=== PATIENT | female | born 1975 | race Caucasian/White ===

== ENCOUNTER 2016-09-29 11:39 | Inpatient (IN) | payer OTHER ==
[2016-09-29 11:53] VITALS: BMI 29.9
--- NOTE | 2016-09-29 11:56 | PDOC ---
History of Present Illness - General Chief Complaint: CVA/TIA Stated Complaint: NUMBNESS/ RT SIDE OF FACE/HEADACHE Time Seen by Provider: 09/29/16 11:55 - History of Present Illness Initial Comments: 41 year old female with history of HTN, HLD, and migraines presenting with right facial heaviness/ numbness and headache since 9:30 AM on 09/29/16 (2.5 hours before interview). She states that she has had a headache and elevated diastolic blood pressures (90s) with systolic in 130s that has been being worked up by Dr. Rooney (her PCP). She was pending insurance approval for CT and just recently achieved approval. She describes the headache as a dull ache radiating from the back of her left neck to her She states that this morning at 9:30 AM she has some numbness and heaviness on the right side of her face along with some sight difficulty speaking. Her last migraine was over a year ago and is not currently on any medication for them. She does admit that this current headache is of the same quality but greater in intensity and with this new facial numbness/ altered sensation. 09/29/16 12:13 Past History - Past Medical History Allergies/Adverse Reactions: Allergies Allergy/AdvReac Type Severity Reaction Status Date / Time No Known Allergies Allergy Verified 09/29/16 11:49 Home Medications: Ambulatory Orders Nifedipine ER [Procardia Xl -] 30 mg PO DAILY #14 tab.er.24 02/23/15 Losartan Potassium 100 mg PO DAILY 09/29/16 Simvastatin 20 mg PO HS 09/29/16 Asthma: No Cancer: No Cardiac Disorders: No Diabetes: No HTN: Yes Seizures: No Thyroid Disease: No - Reproductive History (#): 4 Para: 3 Spontaneous : 0 - Immunization History Immunization Up to Date: Yes - Psycho/Social/Smoking Cessation Hx Anxiety: No Suicidal Ideation: No Smoking Status: No Smoking History: Never smoked Have you smoked in the past 12 months: No Number of Cigarettes Smoked Daily: 0 Hx Alcohol Use: No Drug/Substance Use Hx: No Substance Use Type: None Hx Substance Use Treatment: No Review of Systems - Review of Systems Constitutional: No: Chills, Diaphoresis, Fever, Loss of Appetite HEENTM: No: Blurred Vision, Tearing Respiratory: No: Cough, Shortness of Breath Cardiac (ROS): No: Chest Pain, Irregular Heart Rate ABD/GI: No: Abdominal Distended, Constipated, Diarrhea, Nausea, Vomiting : No: Dysuria, Discharge, Frequency Musculoskeletal: No: Back Pain, Joint Pain, Joint Swelling Integumentary: No: Change in Color, Erythema, Lesions, Rash Neurological: Yes: Headache, Numbness *Physical Exam - Vital Signs Last Vital Signs Temp Pulse Resp BP Pulse Ox 99 F 115 H 19 153/84 99 09/29/16 11:49 09/29/16 11:49 09/29/16 11:49 09/29/16 11:49 09/29/16 11:49 - Physical Exam General Appearance: Yes: Appropriately Dressed. No: Apparent Distress HEENT: positive: EOMI, NUZHAT, Normal Voice Neck: positive: Trachea midline, Normal Thyroid, Supple. negative: Tender, Rigid Respiratory/Chest: positive: Lungs Clear, Normal Breath Sounds. negative: Chest Tender, Respiratory Distress, Accessory Muscle Use Cardiovascular: positive: Regular Rhythm, Regular Rate. negative: S1, S2, Edema , Murmur Gastrointestinal/Abdominal: positive: Normal Bowel Sounds, Flat, Soft. negative : Tender, Organomegaly Musculoskeletal: positive: Normal Inspection Extremity: positive: Normal Range of Motion Integumentary: positive: Normal Color, Dry, Warm Neurologic: positive: spool sander II-XII NML intact, Fully Oriented, Alert, Normal Mood/ Affect, Normal Response, Motor Strength 5/5, Other (Reflexes normal) Heart Score/ECG Review - ECG Impressions Normal ECG: Yes Comment:: 09/29/16 13:10 NSR with anterior lead depend S waves and poor R wave progression. ED Treatment Course - LABORATORY CBC & Chemistry Diagram: 09/29/16 12:17 09/29/16 12:17 Medical Decision Making - Medical Decision Making 41 year old with right sided facial numbness/ heaviness concerning for stroke so code sanderson activated given a score of 1 on the stroke scale and being within the window for thromobolytics without contraindication. CT head and stroke order set sent. This could be a complex migraine as well given her history of migraines in the past so will treat with 975 Tylenol and 10 IV Reglan. 09/29/16 12:43 CT head negative so will touch base with neurology after labs return. 09/29/16 13:02 Patients symptoms resolved after Reglan and Tylenol so this is most likely an element of her migraine history but given risk factors stroke may need to be ruled out further. 09/29/16 14:[address] Washington at 14:30, we will admit patient with MRI Brain and continuation of stroke care. The patient is on board with this plan and she will be admitted to Dr. Armstrong. *DC/Admit/Observation/Transfer Diagnosis at time of Disposition: TIA (transient ischemic attack) - Discharge Dispostion Admit: Yes - Attestations Physician Attestion: 09/29/16 14:57 I, Dr. Zeferino Foster, attest that this document has been prepared under my direction and personally reviewed by me in its entirety. I further attest, that it accurately reflects all work, treatment, procedures and medical decision -making performed by me.
[2016-09-29] MEDS ORDERED: ACETAMINOPHEN 325 MG TABLET (FP) PO ONE (12:12)
[2016-09-29] MEDS ORDERED: METOCLOPRAMIDE HCL INJECTION 10 MG/2 ML VIAL IVPUSH ONE (12:13)
[2016-09-29] MEDS ORDERED: SODIUM CHLORIDE 1,000 ML IV SCH (12:15)
[2016-09-29] MEDS ORDERED: ACETAMINOPHEN 325 MG TABLET (FP) ONE (12:20)
[2016-09-29] MEDS ORDERED: METOCLOPRAMIDE HCL INJECTION 10 MG/2 ML VIAL ONE (12:21)
[2016-09-29 12:56] LABS: EOSINOPHIL 0.1 % (0-4.5); MCH 26.5 pg (25.7-33.7); MCHC 32.6 g/dl (32.0-36.0); MEAN CELL VOLUME 81.3 fl (80-96); NEUTROPHILS 52.8 % (42.8-82.8); PLATELET COUNT 184 K/MM3 (134-434); RDW 14.3 % (11.6-15.6); WHITE BLOOD COUNT 4.3 K/mm3 (4.0-10.0)
--- NOTE | 2016-09-29 13:09 | PDOC ---
Attending Attestation - Resident Resident Name: Zeferino Foster - ED Attending Attestation I have performed the following: I have examined & evaluated the patient, The case was reviewed & discussed with the resident, I agree w/resident's findings & plan, Exceptions are as noted - HPI HPI: 09/29/16 13:05 41-year-old female patient with history of migraines, hypertension, hyperlipidemia presents with several days of right-sided headache radiating to right upper neck. States that she typically gets these headaches around her periods. However, the patient's was concerned as the duration and intensity was worse. She denies any auras or photophobia. Denies fevers or neck stiffness. Patient was initially seen by her primary care physician was scheduled her for an outpatient head CT but recently had her insurance approved. Did not obtain a head CT. Approximate 9:30 AM, the patient started to complain about some paresthesias and numbness along the right side of face so came into the ED. Code glover was activated upon the symptoms. - Physicial Exam PE: 09/29/16 13:07 GENERAL: Awake, alert, and fully oriented, in no acute distress. HEAD: No signs of trauma EYES: PERRLA, EOMI, sclera anicteric, conjunctiva clear ENT: Auricles normal inspection, hearing grossly normal, nares patent, oropharynx clear without exudates. NECK: Normal ROM, supple, no lymphadenopathy, JVD, or masses LUNGS: Breath sounds equal, clear to auscultation bilaterally. No wheezes, and no crackles HEART: Regular rate and rhythm, normal S1 and S2, no murmurs, rubs or gallops ABDOMEN: Soft, nontender, normoactive bowel sounds. No guarding, no rebound. No masses EXTREMITIES: Normal range of motion, no edema. No clubbing or cyanosis. No cords, erythema, or tenderness NEUROLOGICAL: Cranial nerves II through XII intact. Normal speech, normal gait. 5/5 strength upper and lower extremities. No pronator drift. No dysmetria. SKIN: Warm, Dry, normal turgor, no rashes or lesions noted. - Medical Decision Making 09/29/16 13:08 Vital Signs Temp Pulse Resp BP Pulse Ox 99 F 115 H 19 153/84 99 09/29/16 11:49 09/29/16 11:49 09/29/16 11:49 09/29/16 11:49 09/29/16 11:49 Code glover was activated though I have low suspicion for CVA. This was activated based on time and symptoms. Patient currently has an NIH stroke scale of 0 and is in eligible for TPA given relative contra indication for low NIH stroke scale. I suspect the patient likely has a complex migraine given her frequent history of migraines. We'll trial migrainous medications. Head CT was obtained and demonstrates no acute findings. If she reports feeling better and after consultation with neurologist, patient will likely be able to be discharged with follow-up with PMD. 09/29/16 14:08 CBC, BMP 09/29/16 12:17 09/29/16 12:17 CMP Sodium 139 mmol/L (136-145) 09/29/16 12:17 Potassium 4.2 mmol/L (3.5-5.1) 09/29/16 12:17 Chloride 105 mmol/L (98-107) 09/29/16 12:17 Carbon Dioxide 27 mmol/L (21-32) 09/29/16 12:17 Anion Gap 7 (8-16) L 09/29/16 12:17 BUN 12 mg/dL (7-18) 09/29/16 12:17 Creatinine 0.6 mg/dL (0.55-1.02) 09/29/16 12:17 Creat Clearance w eGFR > 60 (>60) 09/29/16 12:17 Random Glucose 103 mg/dL (74-106) 09/29/16 12:17 Calcium 9.8 mg/dL (8.5-10.1) 09/29/16 12:17 Total Bilirubin 0.9 mg/dL (0.2-1.0) D 09/29/16 12:17 AST 21 U/L (15-37) 09/29/16 12:17 ALT 22 U/L (12-78) D 09/29/16 12:17 Alkaline Phosphatase 48 U/L (45-117) D 09/29/16 12:17 Troponin I < 0.02 ng/ml (0.00-0.05) 09/29/16 12:17 Total Protein 8.4 g/dl (6.4-8.2) H D 09/29/16 12:17 Albumin 4.4 g/dl (3.4-5.0) D 09/29/16 12:17 Triglycerides 167 mg/dL (35-160) H 09/29/16 12:17 Cholesterol 194 mg/dL (50-200) 09/29/16 12:17 Total LDL Cholesterol 111 mg/dL (5-100) H 09/29/16 12:17 HDL Cholesterol 62 mg/dL (40-60) H 09/29/16 12:17 Serum , Qual Negative 09/29/16 12:[address] reviewed. No acute findings. Pt was given reglan and tylenol with significant improvement in symptoms. I suspect that its complex migraine. Will discuss case with neurology. If cleared by neuro, will d/c patient. 09/29/16 14:45 Dr. Foster had spoke to Dr. Washington. Recommends MRI and admission. Will admit patient. Heart Score/ECG Review #1 ECG reviewed & interpreted by me at: 12:20 09/29/16 13:09 NSR 98, no std/vanessa, normal axis, normal intervals, QTC 469 msec. normal ECG NIH Stroke Scale - Last Known Well Date/Time & Onset Date Last Known Well: 09/29/16 Time Last Known Well: 09:30 - Initial Evaluation Level of consciousness: Alert Ask patient the month and their age: Answers both correctly Ask patient to open & close eyes; make fist and let go: Obeys both correctly Best gaze (horizontal eye movement): Normal Visual field testing: No visual field loss Facial paresis (Show teeth/raise eyebrows/close eyes tight): Normal symmetrical movement Motor Function: Left Arm: Normal Motor Function: Right Arm: Normal (extends arm 90 (or 45) degrees for 10 seconds without drift Motor Function: Left Leg: Normal (extends leg 30 degrees for 5 seconds without drift) Motor Function: Right Leg: Normal (extends leg 30 degrees for 5 seconds without drift) Limb Ataxia: No ataxia Sensory(Use pinprick test arms,legs,trunk,face/side to side): Normal Best language (Describe picture, name items, read sentences): No Aphasia Dysarthria (read several words): Normal articulation Extinction and Inattention: No abnormality - Total Score NIH Stroke Scale Score: 0
[2016-09-29 13:15] LABS: INR 1.13 (0.82-1.09); PROTHROMBIN TIME (PATIENT) 12.5 SEC (9.98-11.88)
[2016-09-29 13:24] LABS: ALBUMIN 4.4 g/dl (3.4-5.0); ANION GAP 7 (8-16); BILIRUBIN,TOTAL 0.9 mg/dL (0.2-1.0); CALCIUM 9.8 mg/dL (8.5-10.1); CHOLESTEROL 194 mg/dL (50-200); CO2 27 mmol/L (21-32); CREATININE 0.6 mg/dL (0.55-1.02); GLUCOSE,RANDOM 103 mg/dL (74-106); LDL CHOLESTEROL (ONLY SJRH) 111 mg/dL (5-100); SGPT/ALT 22 U/L (12-78); TOT PROT 8.4 g/dl (6.4-8.2)
[2016-09-29 13:25] LABS: ALK PHOS 48 U/L (45-117); TROPONIN I < 0.02 ng/ml (0.00-0.05)
[2016-09-29 13:32] LABS: SGOT/AST 21 U/L (15-37)
[2016-09-29 14:34] LABS: URINE APPEARANCE CLEAR; URINE BILIRUBIN NEGATIVE (NEGATIVE); URINE BLOOD NEGATIVE (NEGATIVE); URINE COLOR STRAW; URINE GLUCOSE (UA) NEGATIVE (NEGATIVE); URINE KETONE NEGATIVE (NEGATIVE); URINE LEUK ESTERASE NEGATIVE (NEGATIVE); URINE NITRITE NEGATIVE (NEGATIVE); URINE PROTEIN NEGATIVE (NEGATIVE); URINE UROBILINOGEN NEGATIVE mg/dL (0.2-1.0)
[2016-09-29 14:58] LABS: CPK 120 IU/L (26-192)
[2016-09-29] MEDS ORDERED: ATORVASTATIN CA 80 MG TABLET (FP) PO ONE (15:40)
--- NOTE | 2016-09-29 15:55 | CON.NEURO ---
Consult - History of Present Illness History of Present Illness: headache for ten days, and right side face numbness and difficulty speaking HPI 41 year old female hsitory of hyptertension, hyperlipidemia, non smoker, not on ocp. She ahs been having numbness and headhace in neck area. She have been getting headhace with her period. She denies any focal neurological symptoms( dysphagia, diplopia, motor weakness of arms or leg, no loss of awareness). Patient had ct head done and it is normal. - Past Medical History ...LMP: 05/14/13 - Past Surgical History Past Surgical History: Yes: None - Alcohol/Substance Use Hx Alcohol Use: No History of Substance Use: reports: None - Smoking History Smoking history: Never smoked Have you smoked in the past 12 months: No Aproximately how many cigarettes per day: 0 - Social History History of Recent Travel: No Home Medications - Allergies Allergies/Adverse Reactions: Allergies Allergy/AdvReac Type Severity Reaction Status Date / Time No Known Allergies Allergy Verified 09/29/16 11:49 - Home Medications Home Medications: Ambulatory Orders Nifedipine ER [Procardia Xl -] 30 mg PO DAILY #14 tab.er.24 02/23/15 Losartan Potassium 100 mg PO DAILY 09/29/16 Simvastatin 20 mg PO HS 09/29/16 Physical Exam-Neuro Vital Signs: Vital Signs Temperature 99 F 09/29/16 11:49 Pulse Rate 76 09/29/16 13:56 Respiratory Rate 16 09/29/16 13:56 Blood Pressure 114/68 09/29/16 13:56 O2 Sat by Pulse Oximetry (%) 98 09/29/16 13:56 Labs: CBC, BMP 09/29/16 12:17 09/29/16 12:17 INR, PTT INR 1.13 (0.82-1.09) 09/29/16 12:17 Imaging - Results Cat Scan: Report Reviewed Assessment/Plan cc headache for ten days, and right side face numbness and difficulty speaking HPI 41 year old female hsitory of hyptertension, hyperlipidemia, non smoker, not on ocp. She ahs been having numbness and headhace in neck area. She have been getting headhace with her period. She denies any focal neurological symptoms( dysphagia, diplopia, motor weakness of arms or leg, no loss of awareness). Patient had ct head done and it is normal. Past Medical History as above Medication, surgery and ROS reviwed in chart Neurological Examination Alert oriented x 3, speech is normal, able to follow command cn all intact, eomi and no face asymmetry motor strength is normal 5/5 all extremity sensation is normal CT head is normal Assessment-- Most likely complex migraine , exam is normal, given patient has symptoms of difficulty talking and numbness in face, also she has history of Hypertension and Hyperlipidemia, symptoms resolved at this time and nih score is 0 Plan-- Mri or brain 2. carotid ultrasound 3. aspirin and statin once mri is normal, statin can be stopped and pateint can be discharged on aspirin and she can follow up me outpatient - if any issue, please call neurology solution strategist over the weekend thank you so much Xiang Washington
[2016-09-29] MEDS ORDERED: ATORVASTATIN CA 80 MG TABLET (FP) ONE (16:34)
[2016-09-29] MEDS ORDERED: ASPIRIN 81 MG CHEWABLE TABLETS PO ONE (16:56)
[2016-09-29] MEDS ORDERED: ASPIRIN 81 MG CHEWABLE TABLETS ONE (16:58)
[2016-09-29] MEDS ORDERED: IBUPROFEN 600 MG TABLET (FP) PO PRN (22:50)
[2016-09-30 07:38] LABS: ALBUMIN 3.7 g/dl (3.4-5.0); ANION GAP 7 (8-16); BASOPHIL 0.8 % (0-2.0); BILIRUBIN,TOTAL 0.7 mg/dL (0.2-1.0); CALCIUM 8.5 mg/dL (8.5-10.1); CO2 27 mmol/L (21-32); CREATININE 0.6 mg/dL (0.55-1.02); EOSINOPHIL 0.5 % (0-4.5); GLUCOSE,RANDOM 92 mg/dL (74-106); MCH 26.7 pg (25.7-33.7); MCHC 32.9 g/dl (32.0-36.0); MEAN CELL VOLUME 81.2 fl (80-96); MEAN PLT VOLUME 9.9 fl (7.5-11.1); NEUTROPHILS 42.2 % (42.8-82.8); PLATELET COUNT 164 K/MM3 (134-434); RDW 14.3 % (11.6-15.6); SGOT/AST 9 U/L (15-37); SGPT/ALT 16 U/L (12-78); TOT PROT 6.9 g/dl (6.4-8.2); WHITE BLOOD COUNT 4.5 K/mm3 (4.0-10.0)
[2016-09-30 07:39] LABS: ALK PHOS 39 U/L (45-117)
[2016-09-30] MEDS ORDERED: LOSARTAN POTASSIUM 50 MG TABLET (FP) PO SCH (10:00)
[2016-09-30] MEDS ORDERED: NIFEdipine E.R. 30 MG TABLET (FP) PO SCH (10:00)
[2016-09-30 10:01] VITALS: PULSE 92
--- NOTE | 2016-09-30 12:37 | PN ---
Progress Note (short form) - Note Progress Note: Patient initially presented for headache for ten days, and right side face numbness and difficulty speaking she has hsitory of hyptertension, hyperlipidemia, non smoker, not on ocp. She ahs been having numbness and headhace in neck area. her headhace is resolved and no tingling and numbness.complain of mild neckdiscomfort Neurological Examination Alert oriented x 3, speech is normal, able to follow command cn all intact, eomi and no face asymmetry motor strength is normal 5/5 all extremity sensation is normal CT head is normal Assessment-- Most likely complex migraine , exam is normal, mri of brain and mra is normal Plan --no evidence of mass lesion or stroke. Advise to follow up outpatient ,patient canbe discharged home Thank you so much Xiang Washington MD
--- NOTE | 2016-09-30 13:23 | HP ---
Admitting History and Physical - Admission History of Present Illness: Pt is a 41 year old female with PMH significant for HTN, HLD, and migraines. Pt presented to the ER with right facial heaviness/ numbness and headache since 9:30 AM on 09/29/16. Pt states SÁNCHEZ starts in her neck wc radiates up her head. Pt denies any nausea/vomiting and no fever/chills/photophobia. In the ER pt had ct scan head wc was unremarkanble. - Past Medical History POOL HAND: Yes: Migraine Cardiovascular: Yes: HTN, Hyperlipdemia ...LMP: 09/01/16 ...: No - Past Surgical History Past Surgical History: Yes: None - Smoking History Smoking history: Never smoked Have you smoked in the past 12 months: No Aproximately how many cigarettes per day: 0 - Alcohol/Substance Use Hx Alcohol Use: No History of Substance Use: reports: None - Social History History of Recent Travel: No Home Medications - Allergies Allergies/Adverse Reactions: Allergies Allergy/AdvReac Type Severity Reaction Status Date / Time No Known Allergies Allergy Verified 09/29/16 11:49 - Home Medications Home Medications: Ambulatory Orders Nifedipine ER [Procardia XL -] 30 mg PO DAILY #14 tab.er.24 02/23/15 Losartan Potassium 100 mg PO DAILY 09/29/16 Simvastatin 20 mg PO HS 09/29/16 Family Disease History - Family Disease History Family History: Unremarkable Review of Systems - Review of Systems Constitutional: reports: No Symptoms Eyes: reports: No Symptoms HENT: reports: No Symptoms Neck: reports: Pain on Movement Cardiovascular: reports: No Symptoms Respiratory: reports: No Symptoms Gastrointestinal: reports: No Symptoms Physical Examination Vital Signs: Vital Signs Temperature 99.6 F 09/30/16 09:39 Pulse Rate 92 H 09/30/16 09:39 Respiratory Rate 20 09/30/16 09:39 Blood Pressure 127/69 09/30/16 09:39 O2 Sat by Pulse Oximetry (%) 100 09/30/16 09:00 Constitutional: Yes: Well Nourished HENT: Yes: WNL, Atraumatic, Normocephalic Neck: Yes: WNL, Supple Cardiovascular: Yes: WNL, Regular Rate and Rhythm Respiratory: Yes: WNL, Regular, CTA Bilaterally Gastrointestinal: Yes: WNL, Normal Bowel Sounds, Soft Musculoskeletal: Yes: WNL Extremities: Yes: WNL Edema: No Neurological: Yes: WNL, Alert, Oriented ...Motor Strength: WNL Labs: CBC, BMP 09/30/16 05:35 09/30/16 05:35 Problem List - Problems (1) TIA (transient ischemic attack) Assessment/Plan: Pt seen by neuro ?ocular migraine Check MRI brain/echo/carotid doppler Code(s): G45.9 - TRANSIENT CEREBRAL ISCHEMIC ATTACK, UNSPECIFIED (2) Hypertension Assessment/Plan: BP stable Code(s): I10 - ESSENTIAL (PRIMARY) HYPERTENSION Qualifiers: Hypertension type: unspecified secondary hypertension Qualified Code(s) : I15.9 - Secondary hypertension, unspecified; I15 - Secondary hypertension
--- NOTE | 2016-09-30 13:31 | EKG ---
Test Reason : Blood Pressure : / mmHG Vent. Rate : 098 BPM Atrial Rate : 098 BPM P-R Int : 124 ms QRS Dur : 096 ms QT Int : 368 ms P-R-T Axes : 052 050 025 degrees QTc Int : 469 ms NORMAL SINUS RHYTHM NORMAL ECG WHEN COMPARED WITH ECG OF 22-AUG-2013 14:44, NO SIGNIFICANT CHANGE WAS FOUND Confirmed by JAY PALOMINO MD ([id number]) on 09/30/2016 1:30:35 PM Referred By: Confirmed By:JAY PALOMINO MD
[2016-09-30 14:14] VITALS: BP 106/65; TEMP 98.5
== END 2016-09-30 15:09 | disposition home or self-care (01) | DRG 54 ==
LOC: JER 11:39 → JERBED 14:58 → J4W 18:15
PROVIDERS: ADMIT Internal Medicine; ATTEND Internal Medicine
DX: G43.109 Migraine with aura, not intractable, without status migrainosus (principal); I10 Essential (primary) hypertension; E78.5 Hyperlipidemia, unspecified; I15.9 Secondary hypertension, unspecified; G45.9 Transient cerebral ischemic attack, unspecified
CPT/HCPCS: 36415; 70450-TC; 70544-TC; 70551-TC; 80053; 81003; 82465; 83718; 83721; 84478; 84484; 84703; 85025; 85610; 86850; 86900; 86901; 93005; 93010; 93880-TC; 99285-25

== ENCOUNTER 2016-10-02 19:50 | Emergency (ER) | payer OTHER ==
[2016-10-02 20:15] VITALS: BP 153/78; PULSE 117; TEMP 100.7; BMI 29.9
[2016-10-02 21:36] LABS: BASOPHIL 0.4 % (0-2.0); EOSINOPHIL 0.2 % (0-4.5); MCH 26.8 pg (25.7-33.7); MCHC 33.1 g/dl (32.0-36.0); MEAN CELL VOLUME 80.9 fl (80-96); MEAN PLT VOLUME 10.3 fl (7.5-11.1); NEUTROPHILS 72.4 % (42.8-82.8); PLATELET COUNT 156 K/MM3 (134-434); RDW 14.1 % (11.6-15.6); WHITE BLOOD COUNT 5.2 K/mm3 (4.0-10.0)
[2016-10-02 21:50] LABS: INR 1.2 (0.82-1.09); PROTHROMBIN TIME (PATIENT) 13.3 SEC (9.98-11.88)
--- NOTE | 2016-10-02 21:50 | PDOC ---
History of Present Illness - General Chief Complaint: Chest Pain Stated Complaint: CHEST PAIN Time Seen by Provider: 10/02/16 20:30 - History of Present Illness Initial Comments: 10/02/16 21:45 CHIEF COMPLAINT: fever HISTORY OF PRESENT ILLNESS: 41 yo F with hx of HTN, HLD, and migraines presents to ED with shortness of breath, palpitations, pain behind L ear, and fever since today. Patient was seen and discharged from this hospital two days ago s/ p evaluation for CVA/TIA with negative brain MRI w/ & w/o contrast, as well as carotid doppler. Patient reports feeling short of breath and having tachycardia. She denies any hormone therapy, OCP, recent travel. PCP: Toribio PAST MEDICAL HISTORY: as per HPI FAMILY HISTORY: Denies SOCIAL HISTORY: Denies tobacco, alcohol, illicit drug use. SURGICAL HISTORY: Denies ALLERGIES: No known drug allergies REVIEW OF SYSTEMS General/Constitutional: Denies fever or chills. Denies weakness, weight change. HEENT: Pain behind L ear. Denies change in vision. Denies ear pain or discharge. Denies sore throat. Cardiovascular: Chest pain, SOB. Respiratory: Denies cough, wheezing, or hemoptysis. Gastrointestinal: Denies nausea, vomiting, diarrhea or constipation. Denies rectal bleeding. Genitourinary: Denies dysuria, frequency, or change in urination. Musculoskeletal: No leg or calf pain. Denies joint or muscle swelling or pain. Denies neck or back pain. Skin and breasts: Denies rash or easy bruising. Neurologic: Denies headache, vertigo, loss of consciousness, or loss of sensation. PHYSICAL EXAM General Appearance: Well-appearing, appropriately dressed. No apparent distress. HEENT: EOMI, PERRLA, normal ENT inspection, normal voice, TMs normal, pharynx normal. No conjunctival pallor. No photophobia, scleral icterus. Neck: Supple. Trachea midline. No tenderness, rigidity, carotid bruit, stridor , lymphadenopathy, or thyromegaly. Respiratory/Chest: Lungs CTAB. No shortness of breath, chest tenderness, respiratory distress, accessory muscle use. No crackles, rales, rhonchi, stridor , wheezing, dullness Cardiovascular: Tachycardia to 120. RRR. S1, S2. Vascular Pulses: Dorsalis-Pedis (R): 2+, Dorsalis-Pedis (L): 2+ Gastrointestinal/Abdominal: Normal bowel sounds. Abdomen soft, non-distended. No tenderness or rebound tenderness. No organomegaly, pulsatile mass, guarding , hernia, hepatomegaly, splenomegaly. Musculoskeletal/Extremities: Normal inspection. FROM of all extremities, normal capillary refill. Pelvis Stable. No CVA tenderness. No tenderness to extremities, pedal edema, swelling, erythema or deformity. Integumentary: Appropriate color, dry, warm. No cyanosis, erythema, jaundice or rash Neurologic: molder setter II-XII intact. Fully oriented, alert. Appropriate mood/affect. Motor strength 5/5. No appreciable EOM palsy, facial droop or sensory deficit. Timing/Duration: momentarily Past History - Past Medical History Allergies/Adverse Reactions: Allergies Allergy/AdvReac Type Severity Reaction Status Date / Time No Known Allergies Allergy Verified 10/02/16 20:13 Home Medications: Ambulatory Orders Nifedipine ER [Procardia XL -] 30 mg PO DAILY #14 tab.er.24 02/23/15 Losartan Potassium 100 mg PO DAILY 09/29/16 Simvastatin 20 mg PO HS 09/29/16 Asthma: No Cancer: No Cardiac Disorders: No Diabetes: No HTN: Yes Hypercholesterolemia: Yes Seizures: No Thyroid Disease: No - Reproductive History (#): 4 Para: 3 Spontaneous : 0 - Immunization History Immunization Up to Date: Yes - Psycho/Social/Smoking Cessation Hx Anxiety: No Suicidal Ideation: No Smoking Status: No Smoking History: Never smoked Have you smoked in the past 12 months: No Number of Cigarettes Smoked Daily: 0 Hx Alcohol Use: No Drug/Substance Use Hx: No Substance Use Type: None Hx Substance Use Treatment: No *Physical Exam - Vital Signs Last Vital Signs Temp Pulse Resp BP Pulse Ox 100.7 F H 117 H 20 153/78 100 10/02/16 20:13 10/02/16 20:13 10/02/16 20:13 10/02/16 20:13 10/02/16 20:13 ED Treatment Course - LABORATORY CBC & Chemistry Diagram: 10/02/16 21:15 10/02/16 21:15 - ADDITIONAL ORDERS Additional order review: 10/02/16 21:15 RBC 4.41 MCV 80.9 MCHC 33.1 RDW 14.1 MPV 10.3 Neutrophils % 72.4 D Lymphocytes % 18.0 D Monocytes % 9.0 Eosinophils % 0.2 Basophils % 0.4 - RADIOLOGY Radiology Studies Ordered: Category Date Time Status CHEST PA & LAT [RAD] Stat Radiology 10/02/16 20:33 Ordered Medical Decision Making - Medical Decision Making 10/02/16 22:18 41 yo F with hx of HTN, HLD, and migraines presents to ED with shortness of breath, palpitations, pain behind L ear, and fever since today. VS notable for temp 100.7F and HR 117 -CBC, CMP, PT/INR, card profile, Mg, D-dimer -EKG, CXR Labs unremarkable. Given patient's continued c/o of SOB and tachycardia, will order D-dimer for r/o PE. D-dimer 346, CTA ordered. CTA negative for PE. 10/03/16 00:47 Discussed case with covering PCP Nathaniel, patient is to f/u in office outpatient tomorrow. Advised patient of signs and symptoms for return to ER; patient verbalized understanding and agrees to plan. *DC/Admit/Observation/Transfer Diagnosis at time of Disposition: Fever Qualifiers: Fever type: unspecified Qualified Code(s): R50.9 - Fever, unspecified - Discharge Dispostion Admit: No - Referrals Referrals: Aldo Rooney MD [Primary Care Provider] - - Patient Instructions Printed Discharge Instructions: DI for Chest Pain Additional Instructions: As discussed, you MUST keep your appointment with Dr. Armstrong tomorrow. If you experience any new chest pain, shortness of breath, vomiting, diarrhea, or any other concerning symptoms, return to the ER.
[2016-10-02 22:05] LABS: ALBUMIN 4.2 g/dl (3.4-5.0); ANION GAP 9 (8-16); BILIRUBIN,TOTAL 0.5 mg/dL (0.2-1.0); CALCIUM 9.3 mg/dL (8.5-10.1); CO2 25 mmol/L (21-32); CREATININE 0.8 mg/dL (0.55-1.02); GLUCOSE,RANDOM 115 mg/dL (74-106); MAGNESIUM 1.9 mg/dL (1.8-2.4); SGOT/AST 8 U/L (15-37); SGPT/ALT 18 U/L (12-78); TOT PROT 7.8 g/dl (6.4-8.2)
[2016-10-02 22:08] LABS: ALK PHOS 47 U/L (45-117); CPK 73 IU/L (26-192); TROPONIN I < 0.02 ng/ml (0.00-0.05)
--- NOTE | 2016-10-04 16:45 | EKG ---
Test Reason : Blood Pressure : / mmHG Vent. Rate : 112 BPM Atrial Rate : 112 BPM P-R Int : 150 ms QRS Dur : 094 ms QT Int : 348 ms P-R-T Axes : 048 054 037 degrees QTc Int : 475 ms SINUS TACHYCARDIA OTHERWISE NORMAL ECG WHEN COMPARED WITH ECG OF 29-SEP-2016 12:20, NO SIGNIFICANT CHANGE WAS FOUND Confirmed by JACQUELINE JOEL MD ([id number]) on 10/04/2016 4:45:05 PM Referred By: Confirmed By:JACQUELINE JOEL MD
== END 2016-10-03 01:36 | disposition home or self-care (01) ==
LOC: JER 19:50
DX: R50.9 Fever, unspecified (principal); I10 Essential (primary) hypertension; E78.00 Pure hypercholesterolemia, unspecified
CPT/HCPCS: 36415; 71020-TC; 71275-TC; 80053; 83735; 84484; 84703; 85025; 85379; 85610; 93005; 93010; 99282-25

== ENCOUNTER 2021-05-28 14:24 | Emergency (ER) | payer OTHER ==
[2021-05-28 14:32] VITALS: BMI 30.7
[2021-05-28] MEDS ORDERED: SODIUM CHLORIDE 0.9% 500 ML INFUS.BAG IV ONE (15:22)
[2021-05-28] MEDS ORDERED: ACETAMINOPHEN 1000 MG/100 ML BAG IVPB ONE (15:22)
[2021-05-28] MEDS ORDERED: ACETAMINOPHEN INJECTION 100 ML IVPB ONE (15:30)
[2021-05-28 16:03] LABS: BASO % 0.6 % (0-2.0); HEMATOCRIT 27.6 % (32.4-45.2); HEMOGLOBIN 9.3 GM/dL (10.7-15.3); LYMPH % 9.9 % (8-40); MCH 25.2 pg (25.7-33.7); MCHC 33.6 g/dl (32.0-36.0); MEAN CELL VOLUME 75.1 fl (80-96); MONO % 10.2 % (3.8-10.2); NEUT % 79.3 % (42.8-82.8); PLATELET COUNT 207 10^3/uL (134-434); RBC 3.67 M/mm3 (3.60-5.2); RDW 15.2 % (11.6-15.6); WHITE BLOOD COUNT 5.5 K/mm3 (4.0-10.0)
[2021-05-28 16:25] LABS: ALBUMIN 3.1 g/dl (3.4-5.0); BLOOD UREA NITROGEN 8.9 mg/dL (7-18); CALCIUM 8.8 mg/dL (8.5-10.1)
[2021-05-28 16:29] LABS: CREATININE 0.6 mg/dL (0.55-1.3)
[2021-05-28 16:31] LABS: BILIRUBIN,TOTAL 0.6 mg/dL (0.2-1); TOT PROT 7.7 g/dl (6.4-8.2)
[2021-05-28 19:08] VITALS: BP 110/78; PULSE 89; TEMP 99
[2021-05-29 16:07] LABS: SARS-CoV-2 NAA Not Detected (Not Detected)
== END 2021-05-28 19:07 | disposition home or self-care (01) ==
LOC: JER 14:24
PROC: 3E0333Z Introduction of Anti-inflammatory into Peripheral Vein, Percutaneous Approach (ICD-10-PCS; principal; 2021-05-28)
DX: R05.1 Acute cough (principal); R06.02 Shortness of breath; R51.9 Headache, unspecified
CPT/HCPCS: 36415; 71046-TC-FY; 80053; 84484; 85025; 87804; 93005; 93010; 99285-25; C9803-CS; U0003; U0005

== ENCOUNTER → 2022-05-22 | Day surgery (SDC) | payer OTHER ==
[2022-05-16 11:35] VITALS: BMI 30.7
[~2022-05-22] MED LIST: ACETAMINOPHEN 325 MG TABLET (FP) PO PRN; DEXAMETHASONE SOD PHOSPHATE 4 MG/1 ML VIAL ONE; IBUPROFEN 400 MG TABLET (FP) PO PRN; KETOROLAC TROMETHAMINE 30 MG/1 ML VIAL ONE; LACTATED RINGERS SOLUTION 1,000 ML IV SCH; LIDOCAINE HCL/PF 2% SDV 5ML VIAL ONE; ONDANSETRON 4 MG/2 ML VIAL IVPUSH PRN; ONDANSETRON 4 MG/2 ML VIAL ONE; PROMETHAZINE HCL 25 MG/1 ML VIAL IVPB PRN; PROPOFOL 20 ML ONE; SEVOFLURANE 250 ML BTL ONE; ceFAZolin SODIUM 1 GM VIAL IVPB ONE; ceFAZolin SODIUM 1 GM VIAL ONE; oxyCODONE HCL 5 MG TABLET PO PRN
[2022-05-22 11:25] VITALS: BP 139/86; PULSE 74; RESP 20; TEMP 97.1
== END | disposition home or self-care (01) ==
LOC: JASU-SURG 04:06 → JASUSAT 04:06
PROVIDERS: ATTEND Obstetrics & Gynecology
PROC: 0UBC8ZZ Excision of Cervix, Via Natural or Artificial Opening Endoscopic (ICD-10-PCS; principal; 2022-05-22 09:00)
PROC: 0UB98ZZ Excision of Uterus, Via Natural or Artificial Opening Endoscopic (ICD-10-PCS; 2022-05-22 09:00)
DX: N84.0 Polyp of corpus uteri (principal); N84.1 Polyp of cervix uteri
CPT/HCPCS: 81025; 88305-TC; 94760